=== PATIENT | female | born 1945 | race Caucasian/White ===

== ENCOUNTER 2018-11-20 16:46 | Inpatient (IN) ==
--- NOTE | 2018-11-20 17:17 | ERNOTE ---
Lower Extremity HPI - General Lower Extremities Pain: hip: right Time Seen by Provider: 11/20/18 16:49 Source: patient, other Exam Limitations: clinical condition - Immun/Allergies/Home Medications Immunizations: IMMUNIZATION HX Immunizations Up to Date Yes Allergies/Adverse Reactions: Allergies Allergy/AdvReac Type Severity Reaction Status Date / Time codeine Allergy Verified 11/20/18 17:38 morphine Allergy Verified 11/20/18 17:38 Home Medications: HOME MEDICATIONS Albuterol Sulfate 2.5 mg INHALATION Q6H PRN 11/20/18 [Last Taken Unknown] Albuterol Sulfate [Proair Hfa] 2 puff INHALATION Q4H PRN 11/20/18 [Last Taken Unknown] Aspirin [Aspirin EC] 81 mg PO DAILY 11/20/18 [Last Taken Unknown] Baclofen 10 mg PO BID 11/20/18 [Last Taken Unknown] Betamethasone Dipropionate 15 gm TOPICAL BID 11/20/18 [Last Taken Unknown] Bisacodyl [Dulcolax Suppository] 10 mg RC DAILY PRN 11/20/18 [Last Taken Unknown] Budesonide/Formoterol Fumarate [Symbicort 160-4.5 Mcg Inhaler] 2 puff INHALATION BID 11/20/18 [Last Taken Unknown] Calcium Citrate/Vitamin D3 [Calcium Citrate - Vit D Caplet] 1 ea PO DAILY 11/20/18 [Last Taken Unknown] Cholecalciferol (Vitamin D3) [Vitamin D3] 5,000 unit PO DAILY 11/20/18 [Last Taken Unknown] DULoxetine HCL [Cymbalta] 30 mg PO BID 11/20/18 [Last Taken Unknown] Escitalopram Oxalate [Lexapro] 10 mg PO DAILY 11/20/18 [Last Taken Unknown] Fluticasone Propionate [Flonase] 2 spray NS DAILY 11/20/18 [Last Taken Unknown] Insulin Glargine,Hum.rec.anlog [Lantus Solostar] 43 unit SQ HS 11/20/18 [Last Taken Unknown] Levothyroxine Sodium [Synthroid] 125 mcg PO DAILY 11/20/18 [Last Taken Unknown] Lidocaine [Lc-5] 45 gm TOPICAL 11/20/18 [Last Taken Unknown] Menthol/Zinc Oxide [Calmoseptine Ointment] 71 gm TOPICAL PRN 11/20/18 [Last Taken Unknown] Nitroglycerin [Nitrostat] 0.4 mg SUBLINGUAL Q5MIN PRN 11/20/18 [Last Taken Unknown] Nystatin 1 appl TOPICAL QID 11/20/18 [Last Taken Unknown] Olopatadine HCl [Patanol] 1 drp OPHTHALMIC (EYE) DAILY 11/20/18 [Last Taken Unknown] Polyethylene Glycol 3350 [Miralax] 17 gm PO DAILY 11/20/18 [Last Taken Unknown] Simethicone [Gas Relief] 80 mg PO DAILY 11/20/18 [Last Taken Unknown] Tramadol HCl [Rybix Odt] 50 mg PO Q6H PRN 11/20/18 [Last Taken Unknown] levETIRAcetam [Levetiracetam] 750 mg PO Q12H 11/20/18 [Last Taken Unknown] metFORMIN HCL [Metformin HCl] 500 mg PO BIDWM 11/20/18 [Last Taken Unknown] rOPINIRole HCL [Requip Xl] 2 mg PO HS 11/20/18 [Last Taken Unknown] - History of Present Illness Narrative: Patient was walking with a walker, tripped and fell on her right side, was seen in the [facility] and diagnosed with a right hip fracture and transfered to [facility] [place] for orthopedic treatment. she received two doses of dilaudid and is comfortable but also very sedated at this point. She denies any other injuries, denies hitting her head or passing out. She was nearly paralyzed form a bones spur in her C-spine recently, had recovered in the care center and had been home since September 20 2018, walking with a walker. She is on home O2 2liters for COPD Date (Duration): 11/20/18 Location of Incident: home Method of Injury: Reports: fell Loss of Consciousness: Reports: no loss of consciousness Modifying Factors - (Improves): Reports: pain medication Modifying Factors - (Worsens): Reports: movement Associated Symptoms: Reports: unable to bear weight Other Injuries: Reports: none Subsequent Symptoms: Denies: sensory loss, numbness Prior Treament: Reports: recently seen Review of Systems - Review of Systems Constitutional: Absent: recent illness Respiratory: Absent: shortness of breath Cardiology: Absent: chest pain Gastrointestinal/Abdominal: Absent: nausea Genitourinary: Present: other - gunderson in place Neurological: Present: See HPI. Absent: headache, weakness, numbness Medical History (Last Updated 11/20/18 @ 17:32 by Albert Shin RN) COPD (chronic obstructive pulmonary disease) Diabetes HTN (hypertension) Hypothyroidism Oxygen dependent Surgical History: Surgical History (Last Updated 11/20/18 @ 17:32 by Albert Shin RN) Hx of hysterectomy Status post surgical removal of neoplasm of skin Social History: Preferred Language Ghanaian Smoking Status Former smoker Alcohol Use occasionally Drug Use none No Social History Section defined Physical Exam - Physical Exam General Appearance: Present: wd/wn, no apparent distress, lethargic Head Exam: Present: normal inspection, no evidence of injury Ears, Nose, Throat: Present: normal pharynx Neck: Present: nontender, full range of motion Respiratory: Present: no respiratory distress, chest nontender, lungs clear, decreased breath sounds Cardiovascular/Chest: Present: regular rate, rhythm, no murmur Peripheral Pulses: N=norm/S=strong/W=weak/B=bound/A=absent: Dorsalis-pedis (R): Normal, Dorsalis-pedis (L): Normal Gastrointestinal/Abdominal: Present: nontender, nondistended, soft Extremity Exam: Present: normal except - - right leg shortened adn externally rotated, pain on palpation of hip, remaining exam normal Neurological Exam: Present: oriented, normal mood/affect Skin Exam: Present: normal color, warm/dry Progress - Vital Signs Patient's Vital Signs:: I have reviewed the patient's vital signs. Vital Signs: Vital Signs 11/20/18 16:46 Temperature 36.8 C Pulse Rate 104 H Respiratory Rate 12 Blood Pressure 127/69 O2 Sat by Pulse Oximetry 93 - Progress/Reassessment Progress Note-Subjective: 11/20/18 17:[address] Mckeon, was aware of transfer, will see patient in hospital 11/20/18 17:16 discussed with yuri Dominguez to admit and order labs, Xray, EKG Departure Clinical Impression: Fracture of right hip Qualifiers: Encounter type: initial encounter Fracture type: closed Qualified Code(s): S72.001A - Fracture of unspecified part of neck of right femur, initial encounter for closed fracture COPD (chronic obstructive pulmonary disease) Qualifiers: COPD type: unspecified COPD Qualified Code(s): J44.9 - Chronic obstructive pulmonary disease, unspecified Chronic respiratory failure Qualifiers: Respiratory failure complication: hypoxia Qualified Code(s): J96.11 - Chronic respiratory failure with hypoxia - Departure Disposition: Still a patient Condition: Stable
[2018-11-20] MEDS ORDERED: HYDROmorphone HCL 1 MG/ML DISP.SYRIN IV PRN (17:37)
[2018-11-20] MEDS ORDERED: oxyCODONE HCL/ACETAMINOPHEN 1 TAB TABLET PO PRN (17:37)
[2018-11-20] MEDS ORDERED: ONDANSETRON HCL/PF 2 MG/ML VIAL IV PRN (17:37)
[2018-11-20] MEDS ORDERED: NITROGLYCERIN 0.4 MG/TAB BTL SL PRN (18:32)
[2018-11-20] MEDS ORDERED: ALBUTEROL SULFATE/IPRATROPIUM 3 ML NEBU IH PRN (18:40)
[2018-11-20] MEDS ORDERED: ONDANSETRON HCL 4 MG TABLET PO PRN (18:53)
--- NOTE | 2018-11-20 19:16 | HP ---
Chief Complaint - Chief Complaint Date of Service: 11/20/18 Time of Service: 18:55 Chief Complaint: I have right hip pain History of Present Illness: 72-year-old female with past medical history of COPD on at home oxygen, type 2 diabetes, hypertension, hypothyroidism, lung cancer in remission, oxygen dependence, former smoker was transferred to our ER from [facility] due to a right hip fracture secondary to a fall that occurred earlier today when the patient tripped with her walker and fell on her right side. Patient's daughter reports while going him into a doctor's office the patient attempted to step onto the sidewalk with a walker and tripped. She fell onto her right side but denies any head or facial trauma or any loss of consciousness. Prior to this occurring patient was and is currently undergoing physical therapy for paralysis secondary to a cervical bone spur but later regained function in her limbs. However patient's daughter reports since recuperating from her illness patient still has residual loss of balance and unsteadiness on her feet. Medical History (Last Updated 11/20/18 @ 18:17 by Venessa Calles RN) COPD (chronic obstructive pulmonary disease) Diabetes HTN (hypertension) Hypothyroidism Lung cancer Oxygen dependent Surgical History: Surgical History (Last Updated 11/20/18 @ 17:32 by Albert Shin RN) Hx of hysterectomy Status post surgical removal of neoplasm of skin Social History: Preferred Language Malay Smoking Status Former smoker Alcohol Use occasionally Drug Use none No Social History Section defined Peds Patient Hx - Developmental: No Pertinent Hx Peds Patient Hx - Medical: No Pertinent Hx Peds Patient Hx - Cardiac/Respiratory: No Pertinent Hx Peds Patient Hx - Surgical: No Surgical History Patient History - Cancer: Lung Review Of Systems (GEN) - Review of Systems Generalized/Overall Review: Present: No Symptoms Reported EENTM: Present: No Symptoms Reported Respiratory: Present: No Symptoms Reported Cardiac: Present: No Symptoms Reported Abdominal: Present: No Symptoms Reported Genitourinary: Present: No Symptoms Reported Musculoskeletal: Present: Joint Pain, Joint Swelling Neurological: Present: Other - Lack of balance and unsteady gait Skin: Present: No Symptoms Reported Endocrine: Present: No Symptoms Reported Immunizations: IMMUNIZATION HX Immunizations Up to Date Yes Allergies/Adverse Reactions: Allergies Allergy/AdvReac Type Severity Reaction Status Date / Time codeine Allergy Verified 11/20/18 17:38 morphine Allergy Verified 11/20/18 17:38 Home Medications: HOME MEDICATIONS Albuterol Sulfate 2.5 mg INHALATION Q6H PRN 11/20/18 [Last Taken Unknown] Albuterol Sulfate [Proair Hfa] 2 puff INHALATION Q4H PRN 11/20/18 [Last Taken Unknown] Aspirin [Aspirin EC] 81 mg PO DAILY 11/20/18 [Last Taken Unknown] Baclofen 10 mg PO BID 11/20/18 [Last Taken Unknown] Betamethasone Dipropionate 15 gm TOPICAL BID 11/20/18 [Last Taken Unknown] Bisacodyl [Dulcolax Suppository] 10 mg RC DAILY PRN 11/20/18 [Last Taken Unknown] Budesonide/Formoterol Fumarate [Symbicort 160-4.5 Mcg Inhaler] 2 puff INHALATION BID 11/20/18 [Last Taken Unknown] Calcium Citrate/Vitamin D3 [Calcium Citrate - Vit D Caplet] 1 ea PO DAILY 11/20/18 [Last Taken Unknown] Cholecalciferol (Vitamin D3) [Vitamin D3] 5,000 unit PO DAILY 11/20/18 [Last Taken Unknown] DULoxetine HCL [Cymbalta] 30 mg PO BID 11/20/18 [Last Taken Unknown] Escitalopram Oxalate [Lexapro] 10 mg PO DAILY 11/20/18 [Last Taken Unknown] Fluticasone Propionate [Flonase] 2 spray NS DAILY 11/20/18 [Last Taken Unknown] Insulin Glargine,Hum.rec.anlog [Lantus Solostar] 43 unit SQ HS 11/20/18 [Last Taken Unknown] Levothyroxine Sodium [Synthroid] 125 mcg PO DAILY 11/20/18 [Last Taken Unknown] Lidocaine [Lc-5] 45 gm TOPICAL 11/20/18 [Last Taken Unknown] Menthol/Zinc Oxide [Calmoseptine Ointment] 71 gm TOPICAL PRN 11/20/18 [Last Taken Unknown] Nitroglycerin [Nitrostat] 0.4 mg SUBLINGUAL Q5MIN PRN 11/20/18 [Last Taken Unknown] Nystatin 1 appl TOPICAL QID 11/20/18 [Last Taken Unknown] Olopatadine HCl [Patanol] 1 drp OPHTHALMIC (EYE) DAILY 11/20/18 [Last Taken Unknown] Polyethylene Glycol 3350 [Miralax] 17 gm PO DAILY 11/20/18 [Last Taken Unknown] Simethicone [Gas Relief] 80 mg PO DAILY 11/20/18 [Last Taken Unknown] Tramadol HCl [Rybix Odt] 50 mg PO Q6H PRN 11/20/18 [Last Taken Unknown] levETIRAcetam [Levetiracetam] 750 mg PO Q12H 11/20/18 [Last Taken Unknown] metFORMIN HCL [Metformin HCl] 500 mg PO BIDWM 11/20/18 [Last Taken Unknown] rOPINIRole HCL [Requip Xl] 2 mg PO HS 11/20/18 [Last Taken Unknown] Exam - Exam Vital Signs: Vital Signs - Last Taken Temp 36.8 C 11/20/18 16:46 Pulse 104 H 11/20/18 16:46 Resp 12 11/20/18 16:46 BP 127/69 11/20/18 16:46 Pulse Ox 93 11/20/18 16:46 Constitutional: Present: Alert, Oriented x3, Cooperative, Well developed, Well nourished, No distress, Other - Patient is drowsy due to pain meds, Elderly, Obese ENT Exam: Present: normal ENT inspection, hearing grossly normal, pharynx normal, TMs normal Eye Exam: bilateral eye: normal inspection, PERRL, EOMI Neck: Present: non-tender, full range of motion, supple, normal inspection, trachea midline Back Exam: Present: normal inspection, no CVA tenderness, no vertebral tenderness Breasts: Present: Exam deferred Respiratory: Present: chest non-tender, lungs clear, no respiratory distress, no accessory muscle use, expiration (prolonged) Cardiovascular/Chest: Present: normal peripheral pulses, regular rate, rhythm, no chest tenderness, no edema, no gallop, no JVD, no murmur, no rub Peripheral Pulses: carotid (R): 3+, carotid (L): 3+, femoral (R): 3+, femoral (L): 3+, dorsalis-pedis (R): 3+, dorsalis-pedis (L): 3+, radial (R): 3+, radial (L): 3+ Abdomen: Present: Normal bowel sounds, soft, nontender, nondistended, no rebound tenderness, no hepatospenomegaly, no masses, obese /Rectal: Present: Exam deferred Extremity: Present: no pedal edema, no calf tenderness, normal capillary refill, leg pain, other - Right lower extremity shortened and externally rotated, tender to palpation Skin Exam: Present: normal color, warm/dry, no cyanosis Lymphatic: Present: no adenopathy Neurologic: Present: ecotherapist II-XII nml as tested, normal cerebellar test, no motor/sensory deficits, alert, normal mood/affect, oriented x 3 Appearance: Present: appropriate appearance, appropriate insight, neat, no memory impairment Eye contact: Present: cooperative, good eye contact, normal speech Thoughts: Present: normal thought pattern, no apparent hallucination Assessment/Plan - Narrative Narrative: Patient was evaluated in the medical chart reviewed and decision to admit to inpatient services at [facility] was taken for repair of a right femoral neck fracture secondary to fall. ER physician spoke to the orthopedic surgeon who agreed to operate on patient tomorrow morning. After careful evaluation patient was cleared for surgery. All routine meds except for inhalers were resumed and breathing treatments with DuoNeb every 4 hours as needed was ordered. - Assessment/Plan (1) Femoral neck fracture Problem: Acute (2) COPD (chronic obstructive pulmonary disease) Problem: Acute Qualifiers: COPD type: unspecified COPD Qualified Code(s): J44.9 - Chronic obstructive pulmonary disease, unspecified (3) O2 dependent Problem: Acute (4) Diabetes 1.5, managed as type 2 Problem: Chronic
[2018-11-20 19:23] LABS: Hematocrit 36.5 % (37.0-47.0); Hemoglobin 11.6 gm/dL (12.5-16.0); Mean Corpuscular Hemoglobin 28.3 pg (27-31); Mean Corpuscular Hgb Conc 31.8 g/dl (32-36); Mean Platelet Volume 9.1 fl (8-12.5); Neutrophil # 5.4 K/mm3 (1.3-6.0); Neutrophil % 74.9 % (42-75.0); Platelet Count 155 K/mm3 (150-450); Red Cell Distribution Width 15.7 % (11.5-14.0); White Blood Count 7.2 K/mm3 (4.0-10.5)
[2018-11-20 19:28] LABS: Albumin * 3.3 gm/dl (3.4-5.0); Anion Gap 8.3 mmol/L (6.8-13.8); BUN/Creatinine Ratio 25.4 (9.0-21.6); Bilirubin, Total 0.4 mg/dL (0.0-1.1); Ca. Corrected For Albumin 8.8 mg/dL (8.4-10.2); Calcium * 8.6 mg/dL (7.9-10.9); Carbon Dioxide 33.9 mmol/L (24-32.6); Potassium 4.2 mmol/L (3.4-4.6); Total Protein 7.3 gm/dL (6.2-8.2)
[2018-11-20] MEDS ORDERED: amLODIPine BESYLATE 5 MG TABLET PO ONE (21:00)
[2018-11-20] MEDS: BACLOFEN 10 MG TABLET PO SCH (22:20)
[2018-11-20] MEDS: DOCUSATE SODIUM 100 MG CAPSULE PO SCH (22:21)
[2018-11-20] MEDS: levETIRAcetam 500 MG TABLET PO SCH (22:22)
[2018-11-20] MEDS: DULoxetine HCL 30 MG CAPSULE.SA PO SCH (22:22)
[2018-11-20] MEDS: INSULIN REGULAR, HUMAN 100 UNITS/ML VIAL SC SCH (22:22)
[2018-11-20] MEDS: PANTOPRAZOLE SODIUM 40 MG in NORMAL SALINE 100 ML IV SCH (22:25)
[2018-11-20] MEDS ORDERED: amLODIPine BESYLATE 5 MG TABLET ONE (22:27)
[2018-11-20] MEDS: rOPINIRole HCL 1 MG TABLET PO SCH (22:28)
[2018-11-20] MEDS: INSULIN GLARGINE,HUM.REC.ANLOG 100 UNITS/ML VIAL SC SCH (22:34)
[2018-11-20] MEDS: traMADol HCL 50 MG TABLET PO PRN (23:05)
[2018-11-21] MEDS: traMADol HCL 50 MG TABLET PO PRN ×3 (08:05→21:31)
[2018-11-21] MEDS: LEVOTHYROXINE SODIUM 125 MCG TABLET PO SCH (08:06)
[2018-11-21] MEDS: INSULIN REGULAR, HUMAN 100 UNITS/ML VIAL SC SCH ×4 (08:12→21:33)
--- NOTE | 2018-11-21 08:25 | CONS ---
[facility] - General Date of Service: 11/21/18 Narrative: Mrs. Mcdonnell is a 72-year-old female who walks with a walker and lives independently with her at home and is a community ambulator who tripped over a curb falling on her right side resulting in injury to her right hip. She was seen in outside hospital and subsequently transferred to our hospital for definitive care after obtaining x-rays which showed a right intertrochanteric femur fracture. She denies any other areas of pain. She denies any previous hip pain on the side. Source: patient Exam Limitations: no limitations - History of Present Illness Timing/Duration: 24 hours Severity: moderate Modifying Factors - (Worsens): Reports: movement Modifying Factors - (Improves): Reports: immobilization Associated Symptoms: denies symptoms Allergies/Adverse Reactions: Allergies codeine Allergy (Verified 11/20/18 17:38) morphine Allergy (Verified 11/20/18 17:38) Home Medications: Home Medications Medication Instructions Recorded Last Taken Albuterol Sulfate 2.5 mg INHALATION Q6H PRN 11/20/18 Unknown Albuterol Sulfate [Proair Hfa] 2 puff INHALATION Q4H PRN 11/20/18 Unknown Aspirin [Aspirin EC] 81 mg PO DAILY 11/20/18 Unknown Baclofen 10 mg PO BID 11/20/18 Unknown Betamethasone Dipropionate 15 gm TOPICAL BID 11/20/18 Unknown Bisacodyl [Dulcolax Suppository] 10 mg RC DAILY PRN 11/20/18 Unknown Budesonide/Formoterol Fumarate 2 puff INHALATION BID 11/20/18 Unknown [Symbicort 160-4.5 Mcg Inhaler] Calcium Citrate/Vitamin D3 1 ea PO DAILY 11/20/18 Unknown [Calcium Citrate - Vit D Caplet] Cholecalciferol (Vitamin D3) 5,000 unit PO DAILY 11/20/18 Unknown [Vitamin D3] DULoxetine HCL [Cymbalta] 30 mg PO BID 11/20/18 Unknown Escitalopram Oxalate [Lexapro] 10 mg PO DAILY 11/20/18 Unknown Fluticasone Propionate [Flonase] 2 spray NS DAILY 11/20/18 Unknown Insulin Glargine,Hum.rec.anlog 43 unit SQ HS 11/20/18 Unknown [Lantus Solostar] Levothyroxine Sodium [Synthroid] 125 mcg PO DAILY 11/20/18 Unknown Lidocaine [Lc-5] 45 gm TOPICAL 11/20/18 Unknown Menthol/Zinc Oxide [Calmoseptine 71 gm TOPICAL PRN 11/20/18 Unknown Ointment] Nitroglycerin [Nitrostat] 0.4 mg SUBLINGUAL Q5MIN PRN 11/20/18 Unknown Nystatin 1 appl TOPICAL QID 11/20/18 Unknown Olopatadine HCl [Patanol] 1 drp OPHTHALMIC (EYE) DAILY 11/20/18 Unknown Polyethylene Glycol 3350 [Miralax] 17 gm PO DAILY 11/20/18 Unknown Simethicone [Gas Relief] 80 mg PO DAILY 11/20/18 Unknown Tramadol HCl [Rybix Odt] 50 mg PO Q6H PRN 11/20/18 Unknown levETIRAcetam [Levetiracetam] 750 mg PO Q12H 11/20/18 Unknown metFORMIN HCL [Metformin HCl] 500 mg PO BIDWM 11/20/18 Unknown rOPINIRole HCL [Requip Xl] 2 mg PO HS 11/20/18 Unknown Medications - Medications Current Medications: Current Medications Albuterol/Ipratropium (Duoneb 2.5-0.5mg/3ml Soln) 3 ml IH Q4H PRN PRN Reason: Shortness Of Breath Stop: 12/20/18 18:41 Last Admin: 11/20/18 22:47 Dose: 3 ml Documented by: Baclofen (Baclofen) 10 mg PO BID [facility] Stop: 12/20/18 21:01 Last Admin: 11/20/18 22:20 Dose: 10 mg Documented by: Docusate Sodium (Colace) 100 mg PO BID [facility] Stop: 12/20/18 21:01 Last Admin: 11/20/18 22:21 Dose: 100 mg Documented by: Duloxetine HCl (Cymbalta) 30 mg PO BID [facility] Stop: 12/20/18 21:01 Last Admin: 11/20/18 22:22 Dose: Not Given Documented by: Pantoprazole Sodium 40 mg/ (Sodium Chloride) 100 mls @ 400 mls/hr IV Q24H [facility] Stop: 12/20/18 18:46 Last Infusion: 11/20/18 22:40 Dose: Infused Documented by: Insulin Glargine (Lantus) 43 units SC [facility] Stop: 12/20/18 21:01 Last Admin: 11/20/18 22:34 Dose: Not Given Documented by: Insulin Human Regular (Humulin R) 0 units SC [facility]; Protocol Stop: 12/20/18 21:01 Last Admin: 11/21/18 08:12 Dose: Not Given Documented by: Levetiracetam (Keppra) 750 mg PO BID [facility] Stop: 12/20/18 21:01 Last Admin: 11/20/18 22:22 Dose: 750 mg Documented by: Levothyroxine Sodium (Synthroid) 125 mcg PO DAILY@0630 [facility] Stop: 12/21/18 06:31 Last Admin: 11/21/18 08:06 Dose: 125 mcg Documented by: Ropinirole HCl (Requip) 2 mg PO HS [facility] Stop: 12/20/18 21:01 Last Admin: 11/20/18 22:28 Dose: 2 mg Documented by: Tramadol HCl (Ultram) 50 mg PO Q6H PRN PRN Reason: Pain Stop: 12/20/18 19:29 Last Admin: 11/21/18 08:05 Dose: 50 mg Documented by: Review of Systems - Review of Systems Generalized/Overall Review: Present: No Symptoms Reported Physical Examination - Exam Narrative: Right lower extremity: Palpable dorsalis pedis pulse, sensations intact light touch, she is a mild abrasion over her thigh but not over the lateral side, thigh is soft, minimal deformity, she is able to flex and extend her toes and ankle. Vital Signs: Vital Signs - Last Taken Temp 37.3 C 11/21/18 06:12 Pulse 82 11/21/18 06:12 Resp 18 11/21/18 06:12 BP 149/53 11/21/18 06:12 Pulse Ox 96 11/21/18 06:12 O2 Oxygen Delivery Method Nasal Cannula Constitutional: Present: Alert, Oriented x3 - Results and Findings: Narrative: AP pelvis 2 views of right hip: Mildly displaced right intertrochanteric femur fracture Lab/Microbiology results last 24 hrs: Abnormal/Pending Laboratory Last 24 HRS 11/20/18 11/20/18 19:00 19:00 RBC 4.10 L Hgb 11.6 L Hct 36.5 L MCHC 31.8 L RDW 15.7 H Lymphocytes % 18.4 L Lymphocytes # 1.33 L Carbon Dioxide 33.9 H BUN/Creatinine Ratio 25.4 H ALT 18 L Albumin 3.3 L - Assessments/Findings (1) Intertrochanteric fracture of right femur Diagnosis(s): Plan is for closed reduction cephalo-medullary fixation today. This to be done this afternoon. As long as she is medically sound. Consent will be obtained. Problem: Acute Qualifiers: Encounter type: initial encounter Fracture type: closed Fracture alignment: displaced Qualified Code(s): S72.141A - Displaced intertrochanteric fracture of right femur, initial encounter for closed fracture
[2018-11-21] MEDS: DOCUSATE SODIUM 100 MG CAPSULE PO SCH ×2 (08:56→23:43)
[2018-11-21] MEDS: BACLOFEN 10 MG TABLET PO SCH ×2 (08:56→23:43)
[2018-11-21] MEDS: DULoxetine HCL 30 MG CAPSULE.SA PO SCH ×2 (08:56→23:43)
[2018-11-21] MEDS: levETIRAcetam 500 MG TABLET PO SCH ×2 (08:56→23:43)
[2018-11-21] MEDS: CALCIUM CARBONATE/VITAMIN D3 1 TAB TABLET PO SCH (08:56)
[2018-11-21] MEDS: metFORMIN HCL 500 MG TABLET PO SCH ×2 (08:56→18:40)
[2018-11-21] MEDS: SIMETHICONE 80 MG TAB.CHEW PO SCH (08:57)
[2018-11-21] MEDS: ACETAMINOPHEN 500 MG TABLET PO PRN ×2 (09:56→16:11)
[2018-11-21] MEDS: FLUTICASONE PROPIONATE 120 SPRAY INHALER NS SCH (10:08)
[2018-11-21] MEDS: ESCITALOPRAM OXALATE 10 MG TAB PO SCH (11:14)
[2018-11-21] MEDS: CHOLECALCIFEROL 5,000 UNIT TABLET PO SCH (11:14)
--- NOTE | 2018-11-21 11:32 | ANES ---
Anesthesia Pre Procedure Eval Vitals/Labs: Last Vital Signs Temp 37 C 11/21/18 10:23 Pulse 67 11/21/18 10:23 Resp 18 11/21/18 10:23 BP 135/57 11/21/18 10:23 Pulse Ox 94 11/21/18 10:23 HOME MEDICATIONS Albuterol Sulfate 2.5 mg INHALATION Q6H PRN 11/20/18 [Last Taken Unknown] Albuterol Sulfate [Proair Hfa] 2 puff INHALATION Q4H PRN 11/20/18 [Last Taken Unknown] Aspirin [Aspirin EC] 81 mg PO DAILY 11/20/18 [Last Taken Unknown] Baclofen 10 mg PO BID 11/20/18 [Last Taken Unknown] Betamethasone Dipropionate 15 gm TOPICAL BID 11/20/18 [Last Taken Unknown] Bisacodyl [Dulcolax Suppository] 10 mg RC DAILY PRN 11/20/18 [Last Taken Unknown] Budesonide/Formoterol Fumarate [Symbicort 160-4.5 Mcg Inhaler] 2 puff INHALATION BID 11/20/18 [Last Taken Unknown] Calcium Citrate/Vitamin D3 [Calcium Citrate - Vit D Caplet] 1 ea PO DAILY 11/20/18 [Last Taken Unknown] Cholecalciferol (Vitamin D3) [Vitamin D3] 5,000 unit PO DAILY 11/20/18 [Last Taken Unknown] DULoxetine HCL [Cymbalta] 30 mg PO BID 11/20/18 [Last Taken Unknown] Escitalopram Oxalate [Lexapro] 10 mg PO DAILY 11/20/18 [Last Taken Unknown] Fluticasone Propionate [Flonase] 2 spray NS DAILY 11/20/18 [Last Taken Unknown] Insulin Glargine,Hum.rec.anlog [Lantus Solostar] 43 unit SQ HS 11/20/18 [Last Taken Unknown] Levothyroxine Sodium [Synthroid] 125 mcg PO DAILY 11/20/18 [Last Taken Unknown] Lidocaine [Lc-5] 45 gm TOPICAL 11/20/18 [Last Taken Unknown] Menthol/Zinc Oxide [Calmoseptine Ointment] 71 gm TOPICAL PRN 11/20/18 [Last Taken Unknown] Nitroglycerin [Nitrostat] 0.4 mg SUBLINGUAL Q5MIN PRN 11/20/18 [Last Taken Unknown] Nystatin 1 appl TOPICAL QID 11/20/18 [Last Taken Unknown] Olopatadine HCl [Patanol] 1 drp OPHTHALMIC (EYE) DAILY 11/20/18 [Last Taken Unknown] Polyethylene Glycol 3350 [Miralax] 17 gm PO DAILY 11/20/18 [Last Taken Unknown] Simethicone [Gas Relief] 80 mg PO DAILY 11/20/18 [Last Taken Unknown] Tramadol HCl [Rybix Odt] 50 mg PO Q6H PRN 11/20/18 [Last Taken Unknown] levETIRAcetam [Levetiracetam] 750 mg PO Q12H 11/20/18 [Last Taken Unknown] metFORMIN HCL [Metformin HCl] 500 mg PO BIDWM 11/20/18 [Last Taken Unknown] rOPINIRole HCL [Requip Xl] 2 mg PO HS 11/20/18 [Last Taken Unknown] Allergies/Adverse Reactions: Allergies Allergy/AdvReac Type Severity Reaction Status Date / Time codeine Allergy Verified 11/20/18 17:38 morphine Allergy Verified 11/20/18 17:38 - Planned Procedure Planned Procedure: R HIP FX Medication List Reviewed:: Yes Allergies Verified: Yes Medical History (Last Reviewed 11/21/18 @ 11:30 by Ashish Self CRNA) COPD (chronic obstructive pulmonary disease) Diabetes HTN (hypertension) Hypothyroidism Lung cancer Oxygen dependent Surgical History (Last Reviewed 11/21/18 @ 11:30 by Ashish Self CRNA) Hx laparoscopic cholecystectomy Hx of hysterectomy Status post surgical removal of neoplasm of skin Family History (Last Reviewed 11/21/18 @ 11:30 by Ashish Self CRNA) Other Unknown family medical history - Family Anesthesia History Family History:: no untoward family reactions to anesthesia, no familial bleeding tendencies, no family history of clotting disorders, no family history of premature - Airway/Neck/Teeth Within Normal Limits:: Yes Teeth Condition: intact Denture Type: Full upper, Full lower Neck Exam: full range of motion Mallampatti Score: 3 Thyromental (T-M) distance: > 6 cm Mandibulo Hyoid distance: > 3 cm - Respiratory Respiratory History: asthma, COPD, sleep apnea, home O2 use, CPAP/BiPAP home use Respiratory Physical: wheezing Smoking Status: Former smoker Sleep Apnea currently treated: Yes Sleep Apnea by current assessment: Yes Discussed Risks/Treatment of M[place]LIN: Yes - Cardiovascular Cardiac History: hypertension, hyperlipidemia Tolerate Activity: Poor Heart Sounds: S1 & S2, Regular - Anesthesia Assessment and Plan ASA Class: PS, IV Anesthesia Type Plan: Spinal Planned difficult intubation/equipment available: No - standby
--- NOTE | 2018-11-21 12:52 | PN ---
Subjective - Date and Time Seen Date: 11/21/18 Time: 12:42 Subjective Narrative: I have mild Rt. hip pain. Objective Objective Narrative: 72-year-old female admitted for a right femur neck fracture secondary to a fall that occurred yesterday when the patient tripped over a curb, was evaluated at bedside and was found to be afebrile and in no acute distress. Patient reports an uneventful night and adequate pain control with the medications she is being given an ice packs. She maintains stable vitals and adequate oxygen saturation. She is scheduled for OR this afternoon for repair of her fracture, we will follow-up with labs after the procedure to reevaluate hemoglobin and electrolytes. Patient was instructed to alert nursing staff if she develops any respiratory issues or shortness of breath given that she is a COPD patient but for now she is doing well. - Review of Systems Generalized/Overall Review: Reports: No Symptoms Reported EENTM: Reports: No Symptoms Reported Respiratory: Reports: No Symptoms Reported Cardiac: Reports: No Symptoms Reported Abdominal: Reports: No Symptoms Reported Genitourinary Symptoms: Reports: No Symptoms Reported Musculoskeletal Complaints: Reports: Joint Pain Neurological: Reports: No Symptoms Reported Skin: Reports: No Symptoms Reported Endocrine: Reports: No Symptoms Reported - Vitals Vitals: Last Vital Signs Temp 37 C 11/21/18 10:23 Pulse 67 11/21/18 10:23 Resp 18 11/21/18 10:23 BP 135/57 11/21/18 10:23 Pulse Ox 94 11/21/18 10:23 - Abnormal Lab Findings Abnormal Lab Findings: Abnormal Lab Results 11/20/18 11/20/18 Range/Units 19:00 19:00 RBC 4.10 L (4.2-5.4) M/mm3 Hgb 11.6 L (12.5-16.0) gm/dL Hct 36.5 L (37.0-47.0) % MCHC 31.8 L (32-36) g/dl RDW 15.7 H (11.5-14.0) % Lymphocytes % 18.4 L (20-51) % Lymphocytes # 1.33 L (1.5-3.5) k/mm3 Carbon Dioxide 33.9 H (24-32.6) mmol/L BUN/Creatinine Ratio 25.4 H (9.0-21.6) ALT 18 L (19-67) U/L Albumin 3.3 L (3.4-5.0) gm/dl - Exam Constitutional: Present: Alert, Oriented x3, Cooperative, Well developed, Well nourished, No distress ENT Exam: Present: normal ENT inspection, hearing grossly normal, pharynx normal, TMs normal Neck: Present: non-tender, full range of motion, supple, normal inspection, trachea midline Breasts: Present: Exam deferred Respiratory: Present: chest non-tender, lungs clear, normal breath sounds, no respiratory distress, no accessory muscle use Cardiovascular/Chest: Present: normal peripheral pulses, regular rate, rhythm, no chest tenderness, no edema, no gallop, no JVD, no murmur Abdomen: Present: Normal bowel sounds, soft, nontender, nondistended, no rebound tenderness, no hepatospenomegaly, no masses, obese /Rectal: Present: Exam deferred Extremity: Present: non-tender, no pedal edema, no calf tenderness, leg pain, other - Right lower extremity externally rotated and shortened, dorsal pedal pulses and sensation are intact. Skin Exam: Present: normal color, warm/dry, no cyanosis Lymphatic: Present: no adenopathy Neurologic: Present: cook ice cream II-XII nml as tested, normal cerebellar test, no motor/sensory deficits, alert, normal mood/affect, oriented x 3 Appearance: Present: appropriate appearance, appropriate insight, neat, no memory impairment Eye contact: Present: cooperative, good eye contact, normal speech Thoughts: Present: normal thought pattern, no apparent hallucination Cauti Physician Documentation - Urinary Catheter Management Urethral (Mccullough) Urethral Indwelling: Yes Assessment/Plan Plan Narrative: Patient is scheduled for surgery to repair her right hip fracture, will follow up with a CBC to evaluate hemoglobin levels and a BMP to evaluate renal function and electrolytes. She has a normal respiratory function and is saturating adequately on room air, we will continue to monitor her closely. - Problems/Diagnosis (1) Femoral neck fracture Problem: Acute (2) COPD (chronic obstructive pulmonary disease) Problem: Chronic Qualifiers: COPD type: unspecified COPD Qualified Code(s): J44.9 - Chronic obstructive pulmonary disease, unspecified (3) O2 dependent Problem: Chronic (4) Diabetes 1.5, managed as type 2 Problem: Chronic (5) HTN (hypertension) Problem: Acute
[2018-11-21] MEDS: NORMAL SALINE 1,000 ML IV PRN ×2 (16:13→19:40)
[2018-11-21] MEDS ORDERED: RINGER'S SOLUTION,LACTATED 1,000 ML IV PRN (17:29)
[2018-11-21] MEDS ORDERED: HYDROcodone/ACETAMINOPHEN 1 EACH TABLET PO PRN (18:00)
[2018-11-21] MEDS ORDERED: MAGNESIUM HYDROXIDE 30 ML UDC PO PRN (18:00)
[2018-11-21] MEDS ORDERED: MAG HYDROX/ALUMINUM HYD/SIMETH 30 ML UDC PO PRN (18:00)
--- NOTE | 2018-11-21 18:04 | OR ---
Operative Report - Dictated Report Narrative: Date: 11/21/2018 Surgeon: Tay Mckeon M.D. High Pressure Cleaner: None Preoperative diagnosis: Closed right Intertrochanteric femur fracture Postoperative diagnosis: Closed right Intertrochanteric femur fracture Operations and procedures: 1. Closed reduction, cephalo-medullary fixation right intertrochanteric femur fracture 2. Intraoperative interpretation of radiographs Anesthesia: Spinal Specimens: None Estimated blood loss: 100 Milliliters Retained implants: [employer] Trigen InterTAN 130 degree size 10 mm by 20 centimeter nail with 95 millimeter lag screw and 90 millimeter compression screw, with distal locking screw Complications: None Indications for procedure: Mrs. Mcdonnell is a 72-year-old female who injured the right leg after ground-level fall when she tripped over a curb. They were admitted to the hospital after being evaluated in the emergency department. Once the medical provider felt that they were stable for surgical treatment, the risks and benefits alternatives were discussed. The risks of , blood clots, bleeding, infection, nerve/tendon/blood vessel injury, malunion, nonunion, failure of implants, painful implants, arthrosis, and need for additional procedures were discussed. The extremity was marked and consent was obtained on the floor. Procedure: After marking the operative extremity on the floor, the patient was taken to the operating room. A timeout was performed. IV antibiotics consisting of Ancef were administered. A spinal anesthetic was induced by anesthesia, and the patient was then placed onto a fracture table with a well-padded perineal post. The nonoperative leg was placed in a well-padded traction boot in slight extension without any traction with an SCD on the leg. The operative leg was placed in a well-padded traction boot. Longitudinal traction, internal rotation, and flexion were utilized in order to reduce the fracture. Preliminary images were attained utilizing C-arm in both the AP and lateral views. This confirmed that we had obtained adequate visualization of the fracture as well as reduction. Next the hip was then prepped and draped in a standard sterile fashion. Next the guidewire was placed percutaneously proximal to the greater trochanter to mariely a starting point at the tip of the greater trochanter centered on the lateral view. This was passed down to the level below the lesser trochanter. A scalpel was utilized in order to dissect down to the greater trochanter in order to place the soft tissue protector down to bone. The entry drill was then placed down the proximal femur to the level of the lesser trochanter. The proper size nail was then selected and impacted into place. We are unable to seat it completely as she had a tight canal us the canal was reamed up to 11.5 mm. The nail was then inserted again and seated completely. The outrigger was utilized in order to confirm the appropriate depth of the nail. Using the alignment device on the outrigger, an incision was made over the lateral femur. Sharp dissection was carried through the iliotibial band down to the proximal femur. The guidewire was placed into the femoral head in a center- center position on AP and lateral views. The tip-apex distance of less than 25 mm combined was obtained. Once we felt that we had placed a guidewire in the appropriate position, it was measured. Next the compression screw site was drilled through the lateral femoral cortex. This was then drilled down to the appropriate depth, again confirming that we are within the confines the bone. The derotational bar was then placed and the lag screw was drilled. The lag screw was then secured in place seating fully ensuring that we were within the confines of the bone. The compression screw was then inserted allowing for compression while releasing the traction on the leg. Using C-arm this was visualized to allow for compression across the fracture site. Once is felt that we had adequately stabilized the intertrochanteric fracture, the distal interlocking screw was placed in a dynamic position. It was confirmed to be the appropriate length and within the nail on both AP and lateral views. The nail was secured allowing for controlled compression and the outrigger was removed. The wounds were then thoroughly irrigated. Final images were obtained. The hip was placed through range of motion and showed no crepitance. The deep fascia was closed with 0 Vicryl, the subcutaneous tissue with 3-0 Vicryl, and the skin was closed with rod. Sterile dressings of Xeroform, 4 x 4, and tape were applied. All sponge, sharp, and instrument counts were correct prior to closing the wounds. The patient was then awoken and transferred to the postanesthesia care unit in stable condition.
--- NOTE | 2018-11-21 18:13 | ANES ---
Post Anesthesia Discharge - Transfer of Care Transfer of Care handoff given to nurse: Yes - Discharge from PACU Discharge from PACU when meets criteria: Yes - Awake and comfortable
--- NOTE | 2018-11-21 18:41 | ANES ---
Post Anesthesia Assessment - Vital Signs Vitals: Last Vital Signs Temp 36.6 C 11/21/18 18:10 Pulse 83 11/21/18 18:35 Resp 16 11/21/18 18:35 BP 122/53 11/21/18 18:35 Pulse Ox 99 11/21/18 18:35 Airway Patency: Normal - Mental Status Level Of Consciousness: Awake - Pain Level Pain Score: 0 - N/V Assessment Nausea/Vomiting Presence: None Dehydration:: No
[2018-11-21] MEDS: PANTOPRAZOLE SODIUM 40 MG in NORMAL SALINE 100 ML IV SCH (19:29)
[2018-11-21] MEDS: ceFAZolin SODIUM 1 GM in DEXTROSE 5 % IN WATER 100 ML IV SCH ×2 (20:37)
[2018-11-21] MEDS ORDERED: NALOXONE HCL 0.4 MG/ML VIAL IV PRN (21:44)
[2018-11-21] MEDS: HYDROmorphone HCL 1 MG/ML DISP.SYRIN IV PRN (21:55)
[2018-11-21] MEDS: INSULIN GLARGINE,HUM.REC.ANLOG 100 UNITS/ML VIAL SC SCH (23:44)
[2018-11-21] MEDS: rOPINIRole HCL 1 MG TABLET PO SCH (23:44)
[2018-11-21] MEDS: SENNOSIDES/DOCUSATE SODIUM 1 TAB TABLET PO SCH (23:45)
[2018-11-22] MEDS: HYDROcodone/ACETAMINOPHEN 1 EACH TABLET PO PRN ×6 (01:33→21:01)
[2018-11-22] MEDS: NORMAL SALINE 1,000 ML IV PRN (01:35)
[2018-11-22] MEDS: ceFAZolin SODIUM 1 GM in DEXTROSE 5 % IN WATER 100 ML IV SCH ×4 (01:38→07:00)
[2018-11-22 05:50] LABS: Prothrombin Time (Patient) 11.1 Seconds (9.0-11.0)
[2018-11-22 05:57] LABS: INR 1.11 INR (0.90-1.10)
[2018-11-22 05:59] LABS: Albumin * 2.5 gm/dl (3.4-5.0); Anion Gap 8.3 mmol/L (6.8-13.8); Bilirubin, Total 0.3 mg/dL (0.0-1.1); Ca. Corrected For Albumin 9.1 mg/dL (8.4-10.2); Calcium * 8.2 mg/dL (7.9-10.9); Carbon Dioxide 33.5 mmol/L (24-32.6); Potassium 3.8 mmol/L (3.4-4.6)
[2018-11-22] MEDS: HYDROmorphone HCL 1 MG/ML DISP.SYRIN IV PRN ×2 (06:00→11:14)
[2018-11-22] MEDS ORDERED: ceFAZolin SODIUM 1 GM VIAL IV PRN (06:00)
[2018-11-22 06:04] LABS: BUN/Creatinine Ratio 13.9 (9.0-21.6)
[2018-11-22 06:17] LABS: Hematocrit 29.4 % (37.0-47.0); Hemoglobin 9.3 gm/dL (12.5-16.0); Mean Cell Volume 88.8 fl (78-100); Mean Corpuscular Hemoglobin 28.1 pg (27-31); Mean Corpuscular Hgb Conc 31.6 g/dl (32-36); Mean Platelet Volume 11.7 fl (8-12.5); Neutrophil # 5.2 K/mm3 (1.3-6.0); Neutrophil % 75.3 % (42-75.0); Platelet Count 111 K/mm3 (150-450); Red Blood Count 3.31 M/mm3 (4.2-5.4); Red Cell Distribution Width 15.6 % (11.5-14.0)
[2018-11-22] MEDS: WARFARIN SODIUM 5 MG TABLET PO SCH ×2 (06:56→16:55)
[2018-11-22] MEDS: LEVOTHYROXINE SODIUM 125 MCG TABLET PO SCH (06:58)
[2018-11-22] MEDS: INSULIN REGULAR, HUMAN 100 UNITS/ML VIAL SC SCH ×4 (06:59→20:24)
[2018-11-22] MEDS: DOCUSATE SODIUM 100 MG CAPSULE PO SCH ×2 (09:08→20:21)
[2018-11-22] MEDS: levETIRAcetam 500 MG TABLET PO SCH ×2 (09:08→20:21)
[2018-11-22] MEDS: BACLOFEN 10 MG TABLET PO SCH ×2 (09:08→22:51)
[2018-11-22] MEDS: CHOLECALCIFEROL 5,000 UNIT TABLET PO SCH (09:08)
[2018-11-22] MEDS: ESCITALOPRAM OXALATE 10 MG TAB PO SCH (09:08)
[2018-11-22] MEDS: SIMETHICONE 80 MG TAB.CHEW PO SCH (09:09)
[2018-11-22] MEDS: metFORMIN HCL 500 MG TABLET PO SCH ×2 (09:09→16:56)
[2018-11-22] MEDS: DULoxetine HCL 30 MG CAPSULE.SA PO SCH ×2 (09:09→20:21)
[2018-11-22] MEDS: CALCIUM CARBONATE/VITAMIN D3 1 TAB TABLET PO SCH (09:10)
[2018-11-22] MEDS: FLUTICASONE PROPIONATE 120 SPRAY INHALER NS SCH (09:11)
--- NOTE | 2018-11-22 10:34 | ANES ---
Anesthesia Procedure Note Procedure Note: ANESTHESIA PROCEDURE NOTE Date of Procedure: 11/22/2017 Time of procedure: 8 AM. Performed by: Ashish Self CRNA, MSN Gold Charmer: Lynne Mcmillan RN. Preprocedure diagnosis: Post proximal humeral surgery pain relief. Post procedure diagnosis: Same. Procedure: Right Interscalene nerve block. Indications: Post right proximal humeral surgery pain relief. Findings: See below. Details of the procedure: The patient was brought to OR #4 and placed in semi- Fowlers position. The patient was prepped with chlorhexidine and using ultrasound guidance the right interscalene level of the brachial plexus was identified and lidocaine 1% was infiltrated to the skin of the intended injection site. Under ultrasound guidance the interscalene nerve bundles of the brachial plexus were approached with visualization of a 2 inch stimulator needle visualized unde ultrasound until a shoulder/arm response was identified on nerve stimulator. Once the stimulator response was effective at less than 0.5 mV and greater than 0.3 mV the brachial plexus nerves at this level were surrounded with 30 mL bupivacaine 0.25% with 1-200,000 epinephrine. Please see radiology/ultrasound report for details and retained images of the procedure. EBL: 0 Fluids: N/A. Specimen: N/A. Post procedure condition: The patient tolerated the procedure well. No complications were noted. Thank you for this consultation. Ashish Self CRNA, MSN
[2018-11-22] MEDS: traMADol HCL 50 MG TABLET PO PRN (10:52)
--- NOTE | 2018-11-22 12:56 | PN ---
Subjective - Date and Time Seen Date: 11/22/18 Time: 12:45 Subjective Narrative: I have mild Rt. hip pain. Objective Objective Narrative: 72-year-old female status post right hip fracture repair day #1 was evaluated during morning rounds was found to be afebrile and in no acute distress. Patient had a uneventful successful repair of her right hip fracture and is recuperating without any issues. Postop hemoglobin decreased from 11 to 9 so patient was placed on oral ferrous sulfate to address anemia. She is maintaining adequate vitals and reports adequate control of her pain. Physical therapy and occupational therapy were started today and discharge planning to a rehab facility is underway. Patient will most likely be discharged on Sunday to [facility]. - Review of Systems Generalized/Overall Review: Reports: No Symptoms Reported EENTM: Reports: No Symptoms Reported Respiratory: Reports: No Symptoms Reported Cardiac: Reports: No Symptoms Reported Abdominal: Reports: No Symptoms Reported Genitourinary Symptoms: Reports: No Symptoms Reported Musculoskeletal Complaints: Reports: Joint Pain Neurological: Reports: No Symptoms Reported Skin: Reports: No Symptoms Reported Endocrine: Reports: No Symptoms Reported - Vitals Vitals: Last Vital Signs Temp 36.1 C 11/22/18 11:59 Pulse 103 H 11/22/18 11:59 Resp 22 H 11/22/18 11:59 BP 118/57 11/22/18 11:59 Pulse Ox 91 L 11/22/18 11:59 - Abnormal Lab Findings Abnormal Lab Findings: Abnormal Lab Results 11/22/18 11/22/18 11/22/18 Range/Units 05:00 05:34 05:34 RBC 3.31 L (4.2-5.4) M/mm3 Hgb 9.3 L (12.5-16.0) gm/dL Hct 29.4 L (37.0-47.0) % MCHC 31.6 L (32-36) g/dl RDW 15.6 H (11.5-14.0) % Plt Count 111 L (150-450) K/mm3 Immature Gran % (Auto) 0.70 H (0.001-0.429) % Immature Gran # (Auto) 0.05 H (0.000-0.0310) K/mm3 Neutrophils % 75.3 H (42-75.0) % Lymphocytes % 16.8 L (20-51) % Lymphocytes # 1.17 L (1.5-3.5) k/mm3 PT 11.1 H (9.0-11.0) Seconds INR (Anticoag Therapy) 1.11 H (0.90-1.10) INR Carbon Dioxide 33.5 H (24-32.6) mmol/L Random Glucose 228 H D (70-110) mg/dL ALT 11 L (19-67) U/L Total Protein 6.0 L (6.2-8.2) gm/dL Albumin 2.5 L (3.4-5.0) gm/dl - Exam Constitutional: Present: Alert, Oriented x3, Cooperative, Well developed, Well nourished, No distress ENT Exam: Present: normal ENT inspection, hearing grossly normal, pharynx normal, TMs normal Neck: Present: non-tender, full range of motion, supple, normal inspection, trachea midline Breasts: Present: Exam deferred Respiratory: Present: crackles - bibasilar crackles Cardiovascular/Chest: Present: normal peripheral pulses, regular rate, rhythm, no chest tenderness, no edema, no gallop, no JVD, no murmur Abdomen: Present: Normal bowel sounds, soft, nontender, nondistended, no rebound tenderness, no hepatospenomegaly, no masses, obese /Rectal: Present: Exam deferred Extremity: Present: leg pain, other - Surgical wound on right hip covered by clean dry bandage. Skin Exam: Present: normal color, warm/dry, no cyanosis Lymphatic: Present: no adenopathy Neurologic: Present: block greaser II-XII nml as tested, normal cerebellar test, no motor/sensory deficits, alert, normal mood/affect, oriented x 3 Appearance: Present: appropriate appearance, appropriate insight, neat, no memory impairment Eye contact: Present: cooperative, good eye contact, normal speech Thoughts: Present: normal thought pattern, no apparent hallucination Cauti Physician Documentation - Urinary Catheter Management Urethral (Mccullough) Urethral Indwelling: No Date of Removal: 11/22/18 Time of Removal: 11:24 Assessment/Plan Plan Narrative: Patient is to continue in hospital PT and OT and will be discharged on Sunday to [place] for rehab. - Problems/Diagnosis (1) Femoral neck fracture Problem: Acute (2) COPD (chronic obstructive pulmonary disease) Problem: Chronic Qualifiers: COPD type: unspecified COPD Qualified Code(s): J44.9 - Chronic obstructive pulmonary disease, unspecified (3) O2 dependent Problem: Chronic (4) Diabetes 1.5, managed as type 2 Problem: Chronic (5) HTN (hypertension) Problem: Acute (6) History of open reduction and internal fixation (ORIF) procedure Problem: Acute
[2018-11-22] MEDS: FERROUS SULFATE 325 MG TABLET PO SCH ×2 (13:25→16:56)
--- NOTE | 2018-11-22 14:36 | PN ---
Subjective - Date and Time Seen Date: 11/22/18 Time: 14:35 Subjective Narrative: Complaints of mild hip pain. She sitting up to chair. She states she took a few steps with therapy today. She is tolerating her lunch. She has no other complaints. Objective - Vitals Vitals: Last Vital Signs Temp 36.1 C 11/22/18 11:59 Pulse 103 H 11/22/18 11:59 Resp 22 H 11/22/18 11:59 BP 118/57 11/22/18 11:59 Pulse Ox 91 L 11/22/18 11:59 - Abnormal Lab Findings Abnormal Lab Findings: Abnormal Lab Results 11/22/18 11/22/18 11/22/18 Range/Units 05:00 05:34 05:34 RBC 3.31 L (4.2-5.4) M/mm3 Hgb 9.3 L (12.5-16.0) gm/dL Hct 29.4 L (37.0-47.0) % MCHC 31.6 L (32-36) g/dl RDW 15.6 H (11.5-14.0) % Plt Count 111 L (150-450) K/mm3 Immature Gran % (Auto) 0.70 H (0.001-0.429) % Immature Gran # (Auto) 0.05 H (0.000-0.0310) K/mm3 Neutrophils % 75.3 H (42-75.0) % Lymphocytes % 16.8 L (20-51) % Lymphocytes # 1.17 L (1.5-3.5) k/mm3 PT 11.1 H (9.0-11.0) Seconds INR (Anticoag Therapy) 1.11 H (0.90-1.10) INR Carbon Dioxide 33.5 H (24-32.6) mmol/L Random Glucose 228 H D (70-110) mg/dL ALT 11 L (19-67) U/L Total Protein 6.0 L (6.2-8.2) gm/dL Albumin 2.5 L (3.4-5.0) gm/dl - Exam Exam Narrative: Right lower extremity: Dressings dry, soft, palpable dorsalis pedis pulse, sensation is intact light touch, moving ankle and toes, mild pain with hip range of motion Constitutional: Present: Alert, Oriented x3 Cauti Physician Documentation - Urinary Catheter Management Urethral (Mccullough) Urethral Indwelling: No Date of Removal: 11/22/18 Time of Removal: 11:24 Assessment/Plan - Problems/Diagnosis (1) Intertrochanteric fracture of right femur Problem: Acute Qualifiers: Encounter type: subsequent encounter Fracture type: closed Fracture alignment: displaced Fracture healing: with routine healing Qualified Code(s): S72.141D - Displaced intertrochanteric fracture of right femur, subsequent encounter for closed fracture with routine healing Narrative: She can continue be weightbearing as tolerated with range of motion as tolerated. Continue physical therapy. She will need 6 weeks of DVT prophylaxis. Keep wound dry. Change every 2-3 days a dry gauze and tape. Okay for discharge or transfer when stable from a medical standpoint. I will see her back in 2-3 weeks.
[2018-11-22] MEDS ORDERED: FERROUS SULFATE 325 MG TABLET PO SCH (17:00)
[2018-11-22] MEDS: PANTOPRAZOLE SODIUM 40 MG in NORMAL SALINE 100 ML IV SCH (20:10)
[2018-11-22] MEDS: INSULIN GLARGINE,HUM.REC.ANLOG 100 UNITS/ML VIAL SC SCH (20:21)
[2018-11-22] MEDS: rOPINIRole HCL 1 MG TABLET PO SCH (20:25)
[2018-11-22] MEDS: SENNOSIDES/DOCUSATE SODIUM 1 TAB TABLET PO SCH (20:27)
[2018-11-23] MEDS: LEVOTHYROXINE SODIUM 125 MCG TABLET PO SCH (06:46)
[2018-11-23] MEDS: INSULIN REGULAR, HUMAN 100 UNITS/ML VIAL SC SCH ×4 (06:50→21:16)
[2018-11-23 06:57] LABS: Prothrombin Time (Patient) 10.4 Seconds (9.0-11.0)
[2018-11-23 06:59] LABS: INR 1.04 INR (0.90-1.10)
[2018-11-23] MEDS: HYDROmorphone HCL 1 MG/ML DISP.SYRIN IV PRN (07:07)
[2018-11-23] MEDS: CHOLECALCIFEROL 5,000 UNIT TABLET PO SCH (08:54)
[2018-11-23] MEDS: BACLOFEN 10 MG TABLET PO SCH ×2 (08:54→21:13)
[2018-11-23] MEDS: DOCUSATE SODIUM 100 MG CAPSULE PO SCH ×2 (08:54→21:16)
[2018-11-23] MEDS: SIMETHICONE 80 MG TAB.CHEW PO SCH (08:54)
[2018-11-23] MEDS: levETIRAcetam 500 MG TABLET PO SCH ×2 (08:54→21:15)
[2018-11-23] MEDS: DULoxetine HCL 30 MG CAPSULE.SA PO SCH ×2 (08:54→21:12)
[2018-11-23] MEDS: metFORMIN HCL 500 MG TABLET PO SCH ×2 (08:55→16:39)
[2018-11-23] MEDS: ESCITALOPRAM OXALATE 10 MG TAB PO SCH (08:55)
[2018-11-23] MEDS: FERROUS SULFATE 325 MG TABLET PO SCH ×3 (08:55→16:39)
[2018-11-23] MEDS: CALCIUM CARBONATE/VITAMIN D3 1 TAB TABLET PO SCH (08:56)
[2018-11-23] MEDS: FLUTICASONE PROPIONATE 120 SPRAY INHALER NS SCH (08:57)
--- NOTE | 2018-11-23 10:06 | PN ---
Subjective - Date and Time Seen Date: 11/23/18 Time: 10:03 Subjective Narrative: patient has no issues except for post-op pain. has PT. POD # 2. Afebrile. Objective - Review of Systems Generalized/Overall Review: Denies: Chills, Fever Respiratory: Denies: Cough, Shortness of Breath Cardiac: Denies: Chest Pain, Edema, Palpitations Abdominal: Denies: Nausea, Vomiting Genitourinary Symptoms: Denies: Urgency, Frequency Musculoskeletal Complaints: Reports: Joint Pain - Vitals Vitals: Last Vital Signs Temp 36.7 C 11/23/18 07:56 Pulse 110 H 11/23/18 07:56 Resp 16 11/23/18 07:56 BP 117/58 11/23/18 07:56 Pulse Ox 91 L 11/23/18 07:56 - Exam Constitutional: Present: Alert, Oriented x3, Cooperative ENT Exam: Present: hearing grossly normal Neck: Present: supple Respiratory: Present: decreased breath sounds, No rales, No wheezing Cardiovascular/Chest: Present: regular rate, rhythm, no JVD, tachycardia Abdomen: Present: Normal bowel sounds, soft, nontender, nondistended Extremity: Present: pedal edema Cauti Physician Documentation - Urinary Catheter Management Urethral (Mccullough) Urethral Indwelling: No Date of Removal: 11/22/18 Time of Removal: 11:24 Assessment/Plan - Problems/Diagnosis (1) Intertrochanteric fracture of right femur Problem: Acute Qualifiers: Encounter type: subsequent encounter Fracture type: closed Fracture alig nment: displaced Fracture healing: with routine healing Qualified Code(s): S72.141D - Displaced intertrochanteric fracture of right femur, subsequent encounter for closed fracture with routine healing Narrative: continue with PT and anticoagulation. possible transfer to [facility] on Sunday. (2) HTN (hypertension) Problem: Chronic Qualifiers: Hypertension type: essential hypertension Qualified Code(s): I10 - Essential (primary) hypertension (3) O2 dependent Problem: Chronic (4) COPD (chronic obstructive pulmonary disease) Problem: Chronic Qualifiers: COPD type: unspecified COPD Qualified Code(s): J44.9 - Chronic obstructive pulmonary disease, unspecified (5) Acute blood loss anemia Problem: Acute Narrative: Fe So4 started
[2018-11-23] MEDS: HYDROcodone/ACETAMINOPHEN 1 EACH TABLET PO PRN ×2 (13:07→19:09)
[2018-11-23] MEDS: WARFARIN SODIUM 5 MG TABLET PO SCH (16:40)
[2018-11-23] MEDS: PANTOPRAZOLE SODIUM 40 MG in NORMAL SALINE 100 ML IV SCH (19:34)
[2018-11-23] MEDS: SENNOSIDES/DOCUSATE SODIUM 1 TAB TABLET PO SCH (21:13)
[2018-11-23] MEDS: rOPINIRole HCL 1 MG TABLET PO SCH (21:13)
[2018-11-23] MEDS: INSULIN GLARGINE,HUM.REC.ANLOG 100 UNITS/ML VIAL SC SCH (21:14)
[2018-11-24] MEDS: HYDROcodone/ACETAMINOPHEN 1 EACH TABLET PO PRN ×5 (02:16→19:31)
[2018-11-24 05:54] LABS: Prothrombin Time (Patient) 11.8 Seconds (9.0-11.0)
[2018-11-24 06:01] LABS: INR 1.18 INR (0.90-1.10)
[2018-11-24] MEDS: INSULIN REGULAR, HUMAN 100 UNITS/ML VIAL SC SCH ×4 (07:15→21:29)
[2018-11-24] MEDS: LEVOTHYROXINE SODIUM 125 MCG TABLET PO SCH (07:15)
[2018-11-24] MEDS: FERROUS SULFATE 325 MG TABLET PO SCH ×3 (08:37→16:41)
[2018-11-24] MEDS: FLUTICASONE PROPIONATE 120 SPRAY INHALER NS SCH (08:37)
[2018-11-24] MEDS: levETIRAcetam 500 MG TABLET PO SCH ×2 (08:38→21:28)
[2018-11-24] MEDS: CHOLECALCIFEROL 5,000 UNIT TABLET PO SCH (08:38)
[2018-11-24] MEDS: ESCITALOPRAM OXALATE 10 MG TAB PO SCH (08:38)
[2018-11-24] MEDS: SIMETHICONE 80 MG TAB.CHEW PO SCH (08:38)
[2018-11-24] MEDS: DULoxetine HCL 30 MG CAPSULE.SA PO SCH ×2 (08:39→21:28)
[2018-11-24] MEDS: BACLOFEN 10 MG TABLET PO SCH ×2 (08:39→21:29)
[2018-11-24] MEDS: CALCIUM CARBONATE/VITAMIN D3 1 TAB TABLET PO SCH (08:39)
[2018-11-24] MEDS: metFORMIN HCL 500 MG TABLET PO SCH ×2 (08:39→16:43)
[2018-11-24] MEDS: DOCUSATE SODIUM 100 MG CAPSULE PO SCH ×2 (08:40→21:29)
--- NOTE | 2018-11-24 09:05 | PN ---
Subjective - Date and Time Seen Date: 11/24/18 Time: 09:02 Subjective Narrative: POD # 3. Still with post-op pain but better controlled. afebrile. Tmax 37. Objective - Review of Systems Generalized/Overall Review: Denies: Chills, Fever Respiratory: Denies: Cough, Shortness of Breath, Wheezing Cardiac: Denies: Chest Pain, Edema, Palpitations Abdominal: Denies: Nausea, Vomiting Genitourinary Symptoms: Denies: Urgency, Frequency Musculoskeletal Complaints: Reports: Joint Pain - Vitals Vitals: Last Vital Signs Temp 36.9 C 11/24/18 06:00 Pulse 85 11/24/18 06:02 Resp 16 11/24/18 06:00 BP 138/59 11/24/18 06:00 Pulse Ox 99 11/24/18 08:37 - Abnormal Lab Findings Abnormal Lab Findings: Abnormal Lab Results 11/24/18 Range/Units 04:45 PT 11.8 H (9.0-11.0) Seconds INR (Anticoag Therapy) 1.18 H (0.90-1.10) INR - Exam Constitutional: Present: Alert, Oriented x3, Cooperative ENT Exam: Present: hearing grossly normal Neck: Present: supple Respiratory: Present: decreased breath sounds, No rales, No wheezing Cardiovascular/Chest: Present: regular rate, rhythm, no JVD, no murmur Abdomen: Present: Normal bowel sounds, soft, nontender, nondistended Extremity: Present: no calf tenderness, pedal edema Cauti Physician Documentation - Urinary Catheter Management Urethral (Mccullough) Urethral Indwelling: No Date of Removal: 11/22/18 Time of Removal: 11:24 Assessment/Plan Plan Narrative: continue with present management - Problems/Diagnosis (1) Intertrochanteric fracture of right femur Problem: Acute Qualifiers: Encounter type: subsequent encounter Fracture type: closed Fracture alignment: displaced Fracture healing: with routine healing Qualified Code(s): S72.141D - Displaced intertrochanteric fracture of right femur, subsequent encounter for closed fracture with routine healing Narrative: POD # 3. cotninue with PT/OT and anticoagulation. possible discharge to [place]. (2) HTN (hypertension) Problem: Chronic Qualifiers: Hypertension type: essential hypertension Qualified Code(s): I10 - Essential (primary) hypertension (3) O2 dependent Problem: Chronic (4) COPD (chronic obstructive pulmonary disease) Problem: Chronic Qualifiers: COPD type: unspecified COPD Qualified Code(s): J44.9 - Chronic obstructive pulmonary disease, unspecified (5) Acute blood loss anemia Problem: Acute
[2018-11-24] MEDS ORDERED: WARFARIN SODIUM 6 MG TABLET PO SCH (17:00)
[2018-11-24] MEDS: SENNOSIDES/DOCUSATE SODIUM 1 TAB TABLET PO SCH (21:28)
[2018-11-24] MEDS: INSULIN GLARGINE,HUM.REC.ANLOG 100 UNITS/ML VIAL SC SCH (21:31)
[2018-11-24] MEDS: rOPINIRole HCL 1 MG TABLET PO SCH (21:32)
[2018-11-25] MEDS: HYDROcodone/ACETAMINOPHEN 1 EACH TABLET PO PRN (03:55)
[2018-11-25 06:04] LABS: Prothrombin Time (Patient) 17.9 Seconds (9.0-11.0)
[2018-11-25 06:08] LABS: Hematocrit 26.5 % (37.0-47.0); Hemoglobin 8.5 gm/dL (12.5-16.0); Mean Cell Volume 88.6 fl (78-100); Mean Corpuscular Hemoglobin 28.4 pg (27-31); Mean Corpuscular Hgb Conc 32.1 g/dl (32-36); Mean Platelet Volume 9.2 fl (8-12.5); Neutrophil # 2.6 K/mm3 (1.3-6.0); Neutrophil % 69.4 % (42-75.0); Platelet Count 172 K/mm3 (150-450); Red Blood Count 2.99 M/mm3 (4.2-5.4); Red Cell Distribution Width 15.3 % (11.5-14.0); White Blood Count 3.8 K/mm3 (4.0-10.5)
[2018-11-25 06:11] LABS: Anion Gap 4.8 mmol/L (6.8-13.8); BUN/Creatinine Ratio 18.4 (9.0-21.6); Calcium * 9.1 mg/dL (7.9-10.9); Carbon Dioxide 39.7 mmol/L (24-32.6); Estimated Creat Clear 89.6; Potassium 3.5 mmol/L (3.4-4.6)
[2018-11-25 06:12] LABS: INR 1.78 INR (0.90-1.10)
[2018-11-25] MEDS: INSULIN REGULAR, HUMAN 100 UNITS/ML VIAL SC SCH ×2 (06:49→11:57)
[2018-11-25] MEDS: LEVOTHYROXINE SODIUM 125 MCG TABLET PO SCH (06:50)
[2018-11-25] MEDS ORDERED: PANTOPRAZOLE SODIUM 40 MG TABLET.EC PO SCH (07:00)
[2018-11-25] MEDS: BACLOFEN 10 MG TABLET PO SCH (08:45)
[2018-11-25] MEDS: SIMETHICONE 80 MG TAB.CHEW PO SCH (08:45)
[2018-11-25] MEDS: FLUTICASONE PROPIONATE 120 SPRAY INHALER NS SCH (08:45)
[2018-11-25] MEDS: DULoxetine HCL 30 MG CAPSULE.SA PO SCH (08:45)
[2018-11-25] MEDS: CALCIUM CARBONATE/VITAMIN D3 1 TAB TABLET PO SCH (08:45)
[2018-11-25] MEDS: CHOLECALCIFEROL 5,000 UNIT TABLET PO SCH (08:45)
[2018-11-25] MEDS: levETIRAcetam 500 MG TABLET PO SCH (08:45)
[2018-11-25] MEDS: ESCITALOPRAM OXALATE 10 MG TAB PO SCH (08:46)
[2018-11-25] MEDS: metFORMIN HCL 500 MG TABLET PO SCH (08:46)
[2018-11-25] MEDS: DOCUSATE SODIUM 100 MG CAPSULE PO SCH (08:46)
[2018-11-25] MEDS: FERROUS SULFATE 325 MG TABLET PO SCH (08:46)
--- NOTE | 2018-11-25 10:10 | PN ---
Subjective - Date and Time Seen Date: 11/25/18 Time: 10:06 Subjective Narrative: Complaints of mild hip pain. She sitting up to chair. She states she is making some progress with therapy. She has no other complaints. Objective - Vitals Vitals: Last Vital Signs Temp 36.4 C 11/25/18 05:57 Pulse 70 11/25/18 05:57 Resp 16 11/25/18 05:57 BP 122/59 11/25/18 05:57 Pulse Ox 97 11/25/18 07:59 - Abnormal Lab Findings Abnormal Lab Findings: Abnormal Lab Results 11/25/18 11/25/18 11/25/18 Range/Units 05:40 05:40 05:40 WBC 3.8 L (4.0-10.5) K/mm3 RBC 2.99 L (4.2-5.4) M/mm3 Hgb 8.5 L (12.5-16.0) gm/dL Hct 26.5 L (37.0-47.0) % RDW 15.3 H (11.5-14.0) % Lymphocytes % 18.6 L (20-51) % Lymphocytes # 0.70 L (1.5-3.5) k/mm3 PT 17.9 H (9.0-11.0) Seconds INR (Anticoag Therapy) 1.78 H (0.90-1.10) INR Carbon Dioxide 39.7 H (24-32.6) mmol/L Anion Gap 4.8 L (6.8-13.8) mmol/L Est GFR (Non-Af Amer) 132 H D (60-130) mL/min - Exam Exam Narrative: RLE - exam stable, NVI, dressing dry, this soft but swollen Cauti Physician Documentation - Urinary Catheter Management Urethral (Mccullough) Urethral Indwelling: No Date of Removal: 11/22/18 Time of Removal: 11:24 Assessment/Plan Plan Narrative: OK for transfer when stable. WBAT, ROM as padmini, Ice to hip, keep dry, cover with dry gauze and tape, follow-up 3 week, coumadin for 6 weeks. Continue PT - Problems/Diagnosis (1) Intertrochanteric fracture of right femur Problem: Acute Qualifiers: Qualified Code(s): S72.141D - Displaced intertrochanteric fracture of right femur, subsequent encounter for closed fracture with routine healing
--- NOTE | 2018-11-25 10:40 | DS ---
(1) Femoral neck fracture Problem: Acute (2) COPD (chronic obstructive pulmonary disease) Problem: Chronic Qualifiers: COPD type: unspecified COPD Qualified Code(s): J44.9 - Chronic obstructive pulmonary disease, unspecified (3) O2 dependent Problem: Chronic (4) Diabetes 1.5, managed as type 2 Problem: Chronic (5) HTN (hypertension) Problem: Chronic Qualifiers: Hypertension type: essential hypertension Qualified Code(s): I10 - Essential (primary) hypertension (6) History of open reduction and internal fixation (ORIF) procedure Problem: Acute Description of Stay: 72-year-old female was admitted for right hip fracture secondary to a fall that occurred outside her doctor's office while attempting to go up a sidewalk. Patient was admitted to our hospital where she underwent a successful and uneventful ORIF. Patient maintained stable vitals and denies any new symptoms. She was placed on Coumadin for DVT prophylaxis by her orthopedic surgeon. Patient has started physical therapy and occupational therapy and will continue at [facility] where she has been accepted and authorized to be admitted. Patient is being discharged with a prescription for pain medications, Coumadin, stool softeners, and an order to repeat INR tomorrow to see if she is on target. She is to follow-up with her PCP in 3-5 days. Procedures Performed: see notes below List Procedures: ORIF of right hip. Results and Findings: Lab Pending Results 11/20/18 19:00: WBC 7.2, RBC 4.10 L, Hgb 11.6 L, Hct 36.5 L, MCV 89.0, MCH 28.3, MCHC 31.8 L, RDW 15.7 H, Plt Count 155, MPV 9.1, Immature Gran % (Auto) 0.30, Immature Gran # (Auto) 0.02, Neutrophils % 74.9, Lymphocytes % 18.4 L, Monocytes % 5.7, Eosinophils % 0.6, Basophils % 0.1, Nucleated RBC % 0.0, Neutrophils # 5.4, Lymphocytes # 1.33 L, Monocytes # 0.4, Eosinophils # 0.0, Absolute Basophils 0.0 11/20/18 19:00: Sodium 137, Plasma Sodium 137, Potassium 4.2, Chloride 99, Carbon Dioxide 33.9 H, Anion Gap 8.3, BUN 15, Creatinine 0.59, Est GFR (Non-Af Amer) 106, BUN/Creatinine Ratio 25.4 H, Random Glucose 99, Calcium 8.6, Calcium Adj for Albumin 8.8, Total Bilirubin 0.4, AST 22, ALT 18 L, Alkaline Phosphatase 78, Total Protein 7.3, Albumin 3.3 L 11/22/18 05:00: PT 11.1 H, INR (Anticoag Therapy) 1.11 H 11/22/18 05:34: WBC 7.0, RBC 3.31 L, Hgb 9.3 L, Hct 29.4 L, MCV 88.8, MCH 28.1, MCHC 31.6 L, RDW 15.6 H, Plt Count 111 L, MPV 11.7, Immature Gran % (Auto) 0.70 H, Immature Gran # (Auto) 0.05 H, Neutrophils % 75.3 H, Lymphocytes % 16.8 L, Monocytes % 5.2, Eosinophils % 1.7, Basophils % 0.3, Nucleated RBC % 0.0, Neutrophils # 5.2, Lymphocytes # 1.17 L, Monocytes # 0.4, Eosinophils # 0.1, Absolute Basophils 0.0 11/22/18 05:34: Sodium 136, Plasma Sodium 138, Potassium 3.8, Chloride 98, Carbon Dioxide 33.5 H, Anion Gap 8.3, BUN 10, Creatinine 0.72, Est GFR (Non-Af Amer) 85, BUN/Creatinine Ratio 13.9, Random Glucose 228 H D, Calcium 8.2, Calcium Adj for Albumin 9.1, Total Bilirubin 0.3, AST 13, ALT 11 L, Alkaline Phosphatase 62, Total Protein 6.0 L, Albumin 2.5 L 11/23/18 06:40: PT 10.4, INR (Anticoag Therapy) 1.04 11/24/18 04:45: PT 11.8 H, INR (Anticoag Therapy) 1.18 H 11/25/18 05:40: PT 17.9 H, INR (Anticoag Therapy) 1.78 H 11/25/18 05:40: WBC 3.8 L, RBC 2.99 L, Hgb 8.5 L, Hct 26.5 L, MCV 88.6, MCH 28.4, MCHC 32.1, RDW 15.3 H, Plt Count 172, MPV 9.2, Immature Gran % (Auto) 0.30, Immature Gran # (Auto) 0.01, Neutrophils % 69.4, Lymphocytes % 18.6 L, Monocytes % 8.5, Eosinophils % 2.9, Basophils % 0.3, Nucleated RBC % 0.0, Neutrophils # 2.6, Lymphocytes # 0.70 L, Monocytes # 0.3, Eosinophils # 0.1, Absolute Basophils 0.0 11/25/18 05:40: Sodium 140, Plasma Sodium 140, Potassium 3.5, Chloride 99, Carbon Dioxide 39.7 H, Anion Gap 4.8 L, BUN 9, Creatinine 0.49, Est GFR (Non-Af Amer) 132 H D, BUN/Creatinine Ratio 18.4, Random Glucose 74, Calcium 9.1 Discharge Location: [facility] Disposition: SNF Condition: Fair Face to Face Encounter completed per [facility] Guidelines: No Level of Care: SNF Discharge Activity: Activity as tolerated Discharge Diet: General/regular food Residential Therapy: Physicial Therapy, Occupation Therapy Referrals: Ko Hernandez ARNP [Primary Care Provider] - Problem Oriented Discharge Instructions to Patient/Family: Warfarin: What You Need to Know, Prothrombin Time, International Normalized Ratio Test, Hip Fracture Additional Patient Instructions (free text): [facility] SNF- PT and OT at discharge. Px is being discharged on Coumadin for DVT profilaxis. INR is to be checked tomorrow,she will be provided with an order. In the meantime patient is to follow Coumadin friendly diet. Prescriptions (Any new or edited meds): Ferrous Sulfate 325 mg PO TIDWM 90 Days #180 tab traMADol HCL [Ultram] 50 mg PO Q6H PRN 15 Days #60 tab PRN Reason: Pain Warfarin Sodium 4 mg PO QDIPM 15 Days #15 tab Complete Home Medications List: Complete Home Medication List: Albuterol Sulfate 2.5 mg INHALATION Q6H PRN 11/20/18 Albuterol Sulfate [Proair Hfa] 2 puff INHALATION Q4H PRN 11/20/18 Aspirin [Aspirin EC] 81 mg PO DAILY 11/20/18 Baclofen 10 mg PO BID 11/20/18 Betamethasone Dipropionate 15 gm TOPICAL BID 11/20/18 Bisacodyl [Dulcolax Suppository] 10 mg RC DAILY PRN 11/20/18 Budesonide/Formoterol Fumarate [Symbicort 160-4.5 Mcg Inhaler] 2 puff INHALATION BID 11/20/18 Calcium Citrate/Vitamin D3 [Calcium Citrate - Vit D Caplet] 1 ea PO DAILY 11/20/18 Cholecalciferol (Vitamin D3) [Vitamin D3] 5,000 unit PO DAILY 11/20/18 DULoxetine HCL [Cymbalta] 30 mg PO BID 11/20/18 Escitalopram Oxalate [Lexapro] 10 mg PO DAILY 11/20/18 Fluticasone Propionate [Flonase] 2 spray NS DAILY 11/20/18 Insulin Glargine,Hum.rec.anlog [Lantus Solostar] 43 unit SQ HS 11/20/18 Levothyroxine Sodium [Synthroid] 125 mcg PO DAILY 11/20/18 Lidocaine [Lc-5] 45 gm TOPICAL 11/20/18 Menthol/Zinc Oxide [Calmoseptine Ointment] 71 gm TOPICAL PRN 11/20/18 Nitroglycerin [Nitrostat] 0.4 mg SUBLINGUAL Q5MIN PRN 11/20/18 Nystatin 1 appl TOPICAL QID 11/20/18 Olopatadine HCl [Patanol] 1 drp OPHTHALMIC (EYE) DAILY 11/20/18 Polyethylene Glycol 3350 [Miralax] 17 gm PO DAILY 11/20/18 Simethicone [Gas Relief] 80 mg PO DAILY 11/20/18 levETIRAcetam [Levetiracetam] 750 mg PO Q12H 11/20/18 metFORMIN HCL [Metformin HCl] 500 mg PO BIDWM 11/20/18 rOPINIRole HCL [Requip Xl] 2 mg PO HS 11/20/18 Ferrous Sulfate 325 mg PO TIDWM 90 Days #180 tab 11/25/18 Sennosides/Docusate Sodium [Senokot-S] 2 tab PO HS tab 11/25/18 Warfarin Sodium 4 mg PO QDIPM 15 Days #15 tab 11/25/18 traMADol HCL [Ultram] 50 mg PO Q6H PRN 15 Days #60 tab 11/25/18 Amb Orders for Discharge: Prothrombin Time Time Frame: 1 Day, Location: Laboratory
[2018-11-25 13:16] VITALS: BP 140/55
[2018-11-25] MEDS ORDERED: WARFARIN SODIUM 6 MG TABLET PO SCH (17:00)
== END 2018-11-25 13:15 | DRG 481 ==
LOC: ER 16:46 → MS 17:35
PROVIDERS: ADMIT Family Medicine; ATTEND Family Medicine
DX: J96.11 Chronic respiratory failure with hypoxia; Y92.9 Unspecified place or not applicable; Y93.01 Activity, walking, marching and hiking; Z79.82 Long term (current) use of aspirin; Z68.31 Body mass index [BMI] 31.0-31.9, adult; Z87.891 Personal history of nicotine dependence; D62 Acute posthemorrhagic anemia; E03.9 Hypothyroidism, unspecified; Z85.118 Personal history of other malignant neoplasm of bronchus and lung; Z88.5 Allergy status to narcotic agent; E66.9 Obesity, unspecified; R26.81 Unsteadiness on feet; Z79.51 Long term (current) use of inhaled steroids; E13.9 Other specified diabetes mellitus without complications; S72.141A Displaced intertrochanteric fracture of right femur, initial encounter for closed fracture; Z79.4 Long term (current) use of insulin; J44.9 Chronic obstructive pulmonary disease, unspecified; G47.30 Sleep apnea, unspecified; W01.0XXA Fall on same level from slipping, tripping and stumbling without subsequent striking against object, initial encounter; Z99.81 Dependence on supplemental oxygen; E78.5 Hyperlipidemia, unspecified; Z86.03 Personal history of neoplasm of uncertain behavior
CPT/HCPCS: 36415; 71010; 71045; 73502; 76000; 80048; 80053; 85025; 85610; 93005; 97110; 97116; 97161; 97166; 97530; 99284